=== PATIENT | female | born 1960 | race Caucasian/White ===

== ENCOUNTER 2022-12-31 15:47 | Outpatient (REF) | payer MEDICARE, MEDICAID, SELFPAY ==
[2022-12-31 18:23] LABS: Anion Gap 18 (12-20)
[2022-12-31 18:28] LABS: Alanine Aminotransferase 115 U/L (0-31); Albumin Level 4.4 g/dL (3.5-5.0); Alkaline Phosphatase 66 U/L (39-117); Aspartate Amino Transferase 121 U/L (5-31); Bilirubin Direct 0.2 mg/dL (0.0-0.5); Bilirubin Total 0.6 mg/dL (0.0-1.0); Blood Urea Nitrogen 20 mg/dL (9-16); Calcium 9.9 mg/dL (8.4-10.2); Carbon Dioxide 24 mmol/L (22-29); Chloride 98 mmol/L (96-108); Estimated Glomerular Filt Rate > 60; Glucose Random 96 mg/dL (60-115); Iron 90 mcg/dL (30-160); Magnesium 1.7 mg/dL (1.6-2.6); Percent Iron Saturation 28 % (15-50); Potassium 4.6 mmol/L (3.3-5.1); Sodium 135 mmol/L (135-145); Total Iron Binding Capacity 326 mcg/dL (228-428); Unsaturated Iron Binding 236 ug/dL
[2022-12-31 18:45] LABS: Ferritin 410 ng/mL (10-250); Gamma Glutamyl Transpeptidase 114 U/L (7-33)
[2022-12-31 18:54] LABS: Vitamin B12 589 pg/mL (200-900)
[2023-01-08 10:44] LABS: Anti Nuclear Antibody Screen NEGATIVE (NEGATIVE)
== END 2022-12-31 15:48 | disposition home or self-care (01) ==
LOC: HO.HHCL 15:47
PROVIDERS: Visit Provider Registered Nurse
DX: R74.8 Abnormal levels of other serum enzymes (principal); R53.83 Other fatigue; Z86.2 Personal history of diseases of the blood and blood-forming organs and certain disorders involving the immune mechanism
CPT/HCPCS: 36415; 80048; 80076; 82607; 82728; 82746; 82977; 83540; 83735; 86038

== ENCOUNTER 2025-04-14 13:42 | Outpatient (REF) | payer MEDICARE, MEDICAID, SELFPAY ==
--- OUTSIDE RECORDS SUMMARY | 2025-04-14 13:30 | XMS_ITS | Encounter Summary ---
Author Organization [employer] Address [address] [place] [address] [address] [place] [address] Care Team Providers Care Certified Master Locksmith Name Role Phone Vonnie Turcios MD Primary Care Provider + Encounter Details Date Type Department Care Team (Latest Contact Info) Description 04/14/2025 1:30 PM EDT Office Visit [facility] [address], [place] [phone] Laura Serrano MD [address] [place] [address] Uncomplicated opioid dependence (CMS/HCC) (HCC) (Primary Dx) Social History Tobacco Use Types Packs/Day Years Used Date Smoking Tobacco: Former Cigarettes Passive Smoke Exposure: Never Smokeless Tobacco: Never Tobacco Cessation:Counseling Given: Not Answered Alcohol Use Standard Drinks/Week Comments Yes 0 (1 standard drink = 0.6 oz pure alcohol) Currently drinking some days, wine and liquor Alcohol Answer Date Recorded How often do you have a drink containing alcohol ? 2 03/18/2023 How many drinks containing a lcohol do you have on a typical day when you are drinking? 1 03/18/2023 How often do you have six or more drinks on one occasion? 0 03/18/2023 Depression Answer Date Recorded Patient Health Questionnaire-9 Score 0 04/14/2025 Patient Health Questionnaire-9 Score 0 04/14/2025 Last PHQ-9: Questionnaire Data Not on file 1 Housing Stability Answer Date Recorded What is your housing situation today? I have kristian vicente 04/14/[address] you li ve. Do you have problems with any of the following? None of the above 04/14/2025 Food Insecurity Answer Date Recorded Within the past 12 months, y ou worried that your food would run out before you got money to buy more: Never True 04/14/2025 Within the past 12 months,th e food you bought just didn't last and you didn't have enough money to get more: Never True Transportation Answer Date Recorded In the past 12 months, has l ack of transportation kept you from medical appts, meetings, work or from getting things needed for daily living? No 04/14/2025 Utilities Answer Date Recorded In the past 12 months, has t he electric, gas, oil or water company threatened to shut off services in your home? Yes 04/14/2025 Depression Answer Date Recorded Patient Health Questionnaire-2 Score 0 04/14/2025 Internet Access Answer Date Recorded Internet Access Q1 I am not sure 04/14/2025 Internet Access Q2 Not on file 04/14/2025 Comments Unknown Sex and Gender Information Value Date Recorded Sex Assigned at Female 04/22/2022 10:21 AM EDT Legal Sex Female 10:21 AM EDT Gender Identity Female 04/22/2022 10:21 AM EDT Sexual Orientation Straight 04/22/2022 10 :21 AM EDT documented as of this encounter Last Filed Vital Signs Vital Sign Reading Time Taken Comments Blood Pressure 138/91 04/14/2025 1:31 PM EDT Pulse 100 04/14/2025 1:31 PM EDT Temperature 37.1 C (98.8 F) 04/14/2025 1:31 PM EDT Respiratory Rate - - Oxygen Saturation - - Inhaled Oxygen Concentration - - Weight - - Height - - Body Mass Index - - documented in this encounter Functional Status * Over the past 2 weeks, how often have you been bothered by any of the following problems? Question Answer Date of Assessment Author Patient Health Questionnaire -2 Score 0 04/14/2025 1:31 PM EDT Maik Best MA * Little interest or pleasure in doing things Answer Date of Assessment Author Not at all 04/14/2025 1:31 PM EDT Inna Best MA * Feeling down, depressed, or hopeless Answer Date of Assessment Author Not at all 04/14/2025 1:31 PM EDT Inna Best MA * Trouble falling or staying asleep, or sleeping too much Answer Date of Assessment Author Not at all 04/14/2025 1:31 PM EDT Inna Best MA * Feeling tired or having little energy Answer Date of Assessment Author Not at all 04/14/2025 1:31 PM EDT Inna Bets MA * Poor appetite or overeating Answer Date of Assessment Author Not at all 04/14/2025 1:31 PM EDT Inna Best MA * Feeling bad about yourself - or that you are a failure or have let yourself or your family down Answer Date of Assessment Author Not at all 04/14/2025 1:31 PM EDInna Sal MA * Trouble concentrating on things, such as reading the newspaper or watching television Answer Date of Assessment Author Not at all 04/14/2025 1:31 PM EDT Inna Best MA * Moving or speaking so slowly that other people could have noticed? Or the opposite - being so fidgety or restless that you have been moving around a lot more than usual. Answer Date of Assessment Author Not at all 04/14/2025 1:31 PM Inna Donaldson MA * Thoughts that you would be better off or hurting yourself in some way Answer Date of Assessment Author Not at all 04/14/2025 1:31 PM Inna Donaldson MA * Patient Health Questionnaire-9 Score Answer Date of Assessment Author 0 04/14/2025 1:31 PM EDT Inna Best MA documented as of this encounter Progress Notes * Laura Serrano MD - 04/14/2025 1:30 PM EDT Patient here for opioid dependence, has been in the OBAT program for 14 years 10 months. Intake date: 04/26/2010. Current Suboxone dose of 8/2 mg daily with appointments on an 8 week schedule. Behavioral health provider is: Olinda Kraus. LFTs last done 12/31/22. Last PCP appt 09/18/23. [place] PAT reviewed by provider. Last Visit 12/23/24 +bup only Jody is here for OBAT visit. Reports doing fine on current Suboxone dose. Planning to move to [place], hopefully in February. She has to sell her condo here first. Her son graduated from [employer] and transferred to [employer]. He will live with her ex partner once Jody moves. She is concerned about finding aSuboxone provider in [place], advised we could help her with that. Also offered Sublcoade as an alternative, she will consider. Not ready to make any major changes now, maybe in the furutre. Feels currentSuboxone dose helps with her depression and doesn't want to mess with it. TODAY-04/14/25 POS:BUP Subjective Patient ID: Jody Landaverde is a 64 y.o. female who presents for OBAT. Jody is being seen for OBAT services. She is maintaining abstinence on Suboxone with no cravings or med side effects. She is planning to put her condo on the market sometime soon and move to [place]. Doesn't know the timetable yet. Mood is good and she has mostly stopped drinking alcohol; now just has an occasional drink. She plans to start researching OBAT programs in [place]. Aware that she needs to do labwork. Review of Systems Psychiatric/Behavioral: Negative for dysphoric mood. The patient is not nervous/anxious. Objective Physical Exam Constitutional: Appearance: Normal appearance. Skin: General: Skin is warm and dry. Neurological: Mental Status: She is alert and oriented to person, place, and time. Assessment/Plan Diagnoses and all orders for this visit: Uncomplicated opioid dependence ([facility]) ([facility]) Counseling provided RE: importance of multiple sources of support for achieving and maintaining recovery. Counseling RE: harm reduction measures, ie, not using alone, the use of clean needles/equipment, Narcan. Discussed strategies to use when confronted with situations that trigger use. Continue current Suboxone dose. Continue eight week visits. - POCT CANDIS-14 Urine Drug Screen This information has been disclosed to you from records protected by federal confidentiality rules (42 CFR Part 2). The federal rules prohibit you from making any further disclosure of information inthis record that identifies a patient as having or having had a substance use disorder either directly, by reference to publicly available information, or through verification of such identification by another person unless further disclosure is expressly permitted by the written consent of the individual whose information is being disclosed or as otherwise permitted by (see2.3.1). The federal rules restrict any use of the information to investigate or prosecute with regard to a crime any patient with a substance use disorder, except as provided at 2.12??(5) and 2.65. documented in this encounter Plan of Treatment Upcoming Encounters Date Type Department Care Team (Late st Contact Info) Description 06/09/2025 1:30 PM EST Office Visit [facility] [address] [place] [address] Laura Serrano MD [address], [place] [phone] documented as of this encounter Procedures Procedure Name Priority Date/Time Associated Diagnosis Comments POCT CANDIS-14 URINE DRUG SCREEN Routine 04/14/2025 1:29 PM EDT Uncomplicated opioid dependence (CMS/HCC) (HCC) documented in this encounter Results * (ABNORMAL) POCT CANDIS-14 Urine Drug Screen (04/14/2025 1:29 PM EDT) THC Negative Negative Cocaine Screen, Urine Negative Negative Opiate Screen, Urine Negative Negative Methamphetamine Screen Urine Negative Negative Amphetamine Screen, Urine Negative Negative Benzodiazepines Screen, Urine Negative Negative Barbiturate Screen, Urine Negative Negative Methadone Screen, Urine Negative Negative Buprenophine Screen, Urine Positive(A) Negative TCA, Urine Negative Negative MDMA Urine Negative Negative ng/mL Oxycodone Screen, Urine Negative Negative Phencyclidine (PCP), Urine Negative Negative Fentanyl, Urine Negative Negative Urine Urine specimen obtained by clean catch procedure / Unknown 04/14/2025 1:29 PM EDT Laura Serrano MD POINT OF CARE TEST ENTER/MERLYN T ORDERABLES Final Result documented in this encounter Visit Diagnoses Diagnosis Uncomplicated opioid dependence (CMS/HCC) (HCC)- Primary documented in this encounter Additional Health Concerns Assessment Noted Time PHQ-9 Depression Total Score: 0 04/14/20 25 1:31 PM EDT documented as of this encounter Care Teams Certified Master Locksmith Relationship Specialty Start Date End Date Vonnie Turcios MD [address] [place] [address] PCP - General Family Medicine 08/02/20 documented as of this encounter
[2025-04-14 16:53] LABS: Alanine Aminotransferase 18 U/L (0-31); Albumin Level 4.5 g/dL (3.5-5.0); Alkaline Phosphatase 74 U/L (39-117); Aspartate Amino Transferase 31 U/L (5-31); Total Protein 8.3 g/dL (6.5-8.0)
--- OUTSIDE RECORDS SUMMARY | 2025-04-14 17:39 | XMS_ITS | Encounter Summary ---
Author Organization [employer] Address [address] [place] [address] [address] [place] [address] Care Team Providers Care Risk Intern Name Role Phone Vonnie Turcios MD Primary Care Provider + Reason for Visit * Reason Comments Med Refill Encounter Details Date Type Department Care Team ([facility] st Contact Info) Description 06/12/2023 Refill [facility] [address] [place], [place] [phone] Vonnie Turcios MD [address] [place] [address] Essential hypertension Social History Tobacco Use Types Packs/Day Years Used Date Smoking Tobacco: Former Cigarettes Passive Smoke Exposure: Never Smokeless Tobacco: Never Alcohol Use Standard Drinks/Week Comments Yes 0 [...] more drinks on one occasion? 0 03/18/2023 Housing Stability Answer Date Recorded What is your housing situation today? I have kristian vicente 04/08/[address] you li ve. Do you have problems with any of the following? None of the above 04/08/2023 Food Insecurity Answer Date Recorded Within the past 12 months, y ou worried that your food would run out before you got money to buy more: Never True 04/08/2023 Within the past 12 months,th e food you bought just didn't last and you didn't have enough money to get more: Never True Transportation Answer Date Recorded In the past 12 months, has l ack of transportation kept you from medical appts, meetings, work or from getting things needed for daily living? No 04/08/2023 Utilities Answer Date Recorded In the past 12 months, has t he electric, gas, oil or water company threatened to shut off services in your home? No 04/08/2023 Depression Answer Date Recorded Patient Health Questionnaire-2 Score 0 07/19/2022 Comments Unknown Sex and Gender Information Value Date Recorded Sex Assigned at Female 04/22/2022 10:21 AM EDT Legal Sex Female 10:21 AM EDT Gender Identity Female 04/22/2022 10:21 AM EDT Sexual Orientation Straight 04/22/2022 10 :21 AM EDT documented as of this encounter Plan of Treatment Upcoming Encounters Date Type Department Care Team (Late st Contact Info) Description 06/09/2025 1:30 PM EST Office Visit [facility] [address] [place] [address] Laura Serrano MD [address] [place] [address] documented as of this encounter Visit Diagnoses Diagnosis Essential hypertension Unspecified essential hypertension documented in this encounter Care Teams Risk Intern Relationship Specialty Start Date End Date Vonnie Turcios MD [address] [place] [address] PCP - General Family Medicine 08/02/20 documented as of this encounter
--- OUTSIDE RECORDS SUMMARY | 2025-04-14 17:39 | XMS_ITS | Encounter Summary ---
Author Organization [employer] Address [address] [place] [address] 7 [place] [address] Care Team Providers Care Cold Header Operator Name Role Phone Vonnie Turcios MD Primary Care Provider + Reason for Visit * Reason Comments Med Refill Encounter Details Date Type Department Care Team (Late Contact Info) Description 08/03/2022 Refill [facility] [address] [place] [address] Laura Serrano MD [address] [place] [address] Uncomplicated opioid dependence (CMS/HCC) Social History Tobacco Use Types Packs/Day Years Used Date Smoking Tobacco: Never Smokeless Tobacco: Never Alcohol Use Standard Drinks/Week Comments Yes 0 (1 standard drink = 0.6 oz pur e alcohol) Depression Answer Date Recorded Patient Health Questionnaire-2 Score 0 07/19/2022 Comments Unknown Sex and Gender Information Value Date Recorded Sex Assigned at Female 04/22/2022 10:21 AM EDT Legal Sex Female 10:21 AM EDT Gender Identity Female 04/22/2022 10:21 AM EDT Sexual Orientation Straight 04/22/2022 10 :21 AM EDT COVID-19 Exposure Response Date Recorded In the last 10 days, have yo u been in contact with someone who was confirmed or suspected to have Coronavirus/COVID-19? No / Unsure 08/01/2022 12:27 PM EST documented as of this encounter Plan of Treatment Upcoming Encounters Date Type Department Care Team (Late Contact Info) Description 06/09/2025 1:30 PM EST Office Visit [facility] [address] [place] [address] Laura Serrano MD [address] [place], [place] [phone] documented as of this encounter Visit Diagnoses Diagnosis Uncomplicated opioid dependence (CMS/HCC) (HCC) documented in this encounter Care Teams Cold Header Operator Relationship Specialty Start Date End Date Vonnie Turcios MD [address] [place] [address] PCP - General Family Medicine 08/02/20 documented as of this encounter
--- OUTSIDE RECORDS SUMMARY | 2025-04-14 17:39 | XMS_ITS | Encounter Summary ---
Author Organization [employer] Address [address] [facility] 7t [place] [address] Care Team Providers Care Big Data Analytics Lead Name Role Phone Vonnie Turcios MD Primary Care Provider + Encounter Details Date Type Department Care Team (Latest Contact Info) Description 04/14/2025 Travel Social History Tobacco Use Types Packs/Day Years [...] is your housing situation today? I have kristianmini vicente 04/14/[address] you [...] AM EDT documented as of this encounter Functional Status * Over the [...] 1:31 PM EDT Inna Best MA * Poor appetite or overeating Answer Date of Assessment Author Not at all 04/14/2025 1:31 PM EDT Inna Best MA * Feeling bad about yourself - or that you are a failure or have let yourself or your family down Answer Date of Assessment Author Not at all 04/14/2025 1:31 PM EDT Inna Best MA * Trouble concentrating on things, such [...] 1:31 PM EDT Inna Best MA * Thoughts that you would be better off or hurting yourself in some way Answer Date of Assessment Author Not at all 04/14/2025 1:31 PM EDT Inna Best MA * Patient Health Questionnaire-9 Score Answer Date of Assessment Author 0 04/14/2025 1:31 PM EDT Inna Best MA documented as of this encounter Plan of Treatment Upcoming Encounters Date Type Department Care Team (Late st Contact Info) Description 06/09/2025 1:30 PM EST Office Visit [facility] [address] [place] [address] Laura Serrano MD [address] [place] [address] documented as of this encounter Visit Diagnoses Not on filedocumented in this encounter Additional Health Concerns Assessment Noted Time PHQ-9 Depression Total Score: 0 04/14/20 25 1:31 PM EDT documented as of this encounter Care Teams Big Data Analytics Lead Relationship Specialty Start Date End Date Vonnie Turcios MD [address] [place] [address] PCP - General Family Medicine 08/02/20 documented as of this encounter
--- OUTSIDE RECORDS SUMMARY | 2025-04-14 17:39 | XMS_ITS | Clinical Summary ---
Author Organization [employer] Address [address] [place] [address] [address] [place] [address] Care Team Providers Care Tank Calibrator Name Role Phone Vonnie Turcios MD Primary Care Provider + Allergies No known active allergies Medications * This document contains information received from the source organization and may not represent a complete record from that organization. acyclovir (Zovirax) 5 % cream apply 1 small amount to affected area by Topical route 5 times every day prn outbreak Active barium sulfate (Readi-Cat 2) 2 % suspension take as directed Active EPINEPHrine (EpiPen 2-Edvin) 0.3 MG/0.3ML injection syringe inject 0.3 milliliter by intramuscular route once as needed for anaphylaxis Active fluticasone (Flonase) 50 MCG/ACT nasal spray spray 2 sprays by each nostril route every morning as needed Active glucose blood ([employer] Blood Glucose Test) test strip Check BS daily. Active zoster vaccine-recombi nant adjuvanted (Shingrix) 50 MCG/0.5ML vaccine inject 0.5 milliliter by intramuscular route once once repeat 0.5 mL dose 2 to 6 months after the first dose (total of 2 doses) Active hydrOXYzine HCl (Atarax) 25 MG tablet Take 25 mg by mouth if needed in the morning, at noon, and at bedtime. Active lisinopril 30 MG tabletIndicatio ns:Essential hypertension TAKE 1 TABLET BY MOUTH EVERY DAY 90 tablet 1 023 Active ibuprofen 400 MG tabletIndicatio ns:Chronic bilateral low back pain with bilateral sciatica TAKE 1 TABLET BY MOUTH EVERY 6 HOURS IF NEEDED FOR PAIN 90 tablet 1 024 Active triamcinolone (Kenalog) 0.1 % cream Apply topically if needed in the morning and at bedtime (pain and swelling). 30 g 2 024 Active buPROPion XL (Wellbutrin XL) 150 MG 24 hr tabletIndicatio ns:Bipolar I disorder (CMS/HCC) (HCC) TAKE 1 TABLET BY MOUTH EVERY DAY 90 tablet 025 Active hydroCHLOROthia zide 12.5 MG tabletIndicatio ns:Essential hypertension TAKE 1 TABLET BY MOUTH EVERY DAY IN THE MORNING 90 tablet 1 025 Active linaCLOtide (Linzess) 290 MCG capsuleIndicati ons:Irritable bowel syndrome with constipation TAKE 1 CAPSULE BY MOUTH EVERY DAY ON EMPTY STOMACH AT LEAST 30 MINUTES BEFORE 1ST MEAL OF THE DAY 90 capsule 025 Active Buprenorphine HCl-Naloxone HCl (Suboxone) 8-2 MG SL filmIndications :Uncomplicated opioid dependence (CMS/HCC) (HCC) Place 1 Film under the tongue Once per day. 28 Film 1 025 2024 Active Buprenorphine HCl-Naloxone HCl (Suboxone) 8-2 MG SL filmIndications :Uncomplicated opioid dependence (CMS/HCC) (HCC) Place 1 Film under the tongue Once per day. 28 Film 1 025 2024 Discontinued(R eorder (will not trigger notification to Pharmacy)) Buprenorphine HCl-Naloxone HCl (Suboxone) 8-2 MG SL filmIndications :Uncomplicated opioid dependence (CMS/HCC) (HCC) Place 1 Film under the tongue Once per day for 21 days. 21 Film 025 2024 Discontinued(R eorder (will not trigger notification to Pharmacy)) Active Problems Problem Noted Date Diagnosed Date Weight loss 09/18/2023 Assessment & Plan (09/18/2023 1:21 PM EDT): 50 lbs lost over the past 8 months Malignancy workup started, it could also be related to alcohol use Mammogram as scheduled for next wk Refer to GI for colonoscopy (last one done in 2009) Intrinsic eczema 09/18/2023 Assessment & Plan (09/18/2023 1:22 PM EDT): On toes Keep area hydrated and use triamcinolone cream BID Onycholysis 09/18/2023 Assessment & Plan (09/18/2023 1:20 PM EDT): Toenails, most likely due to long standing, untreated onychomycosis Refer to podiatry, pt may need to have some toenail excision Screening for colorectal cancer 09/18/2023 Primary osteoarthritis of left shoulder 09/18/19 Assessment & Plan (09/18/2023 1:33 PM EDT): Continue chiropractor + yoga Recommended to come to acupuncture clinic, info given today. Neck pain 09/11/2023 Alcohol withdrawal syndrome without complication (CMS/HCC) 01/10/2023 Assessment & Plan (01/12/2023 5:50 PM EDT): pt was probably in withdrawl at last appointment, counseled to avoid going back to drinking, vital signs are stable and symptoms seem to have subsisded we discussed at length of cutting down to off of alcohol she declined referral to AUD recommended her to reach out to wellness coach in suboxone program Chronic bilateral low back pain with bilateral s ciatica 01/10/2023 Assessment & Plan (01/10/2023 1:40 PM EDT): Seems to be muscluar. Recent x-ray wnl. recommended to restart stretching excerises, local heat to afected area, tylenol 500mg twice per day PRN. Reconsult PRN Elevation of levels of liver transaminase levels 01/10/2023 Alcoholic liver disease, unspecified 01/10/2023 Overview (09/18/2023): Abd US on 01/2023 ([facility]) showed fatty liver. Abnormal results of liver function studies 01/10 Hyponatremia 08/01/2022 Assessment & Plan (08/01/2022 1:29 PM EST): Most likely related to alcohol, liver disease, and lisinopril. Repeated labs are still pending. Counseled to cut down on alcohol use. Counseled to avoid excessive water intake. Elevated liver enzymes 08/01/2022 Assessment & Plan (09/18/2023 1:23 PM EDT): Related to alcohol use Counseled to cut down alcohol use and fu LFT's done last wk Assessment & Plan (01/10/2023 1:38 PM EDT): most likely related to alcohol counseled to quit alcohol repeat LFTS in 3 months liver US is pending FU with me in 4 weeks Assessment & Plan (08/01/2022 1:28 PM EST): Most likely related to patient's continues to drink alcohol albeit lower than last year's. Counseled to quit alcohol for at least 3 months, will repeat LFTs then with an abdominal US. Screening mammogram for breast cancer 07/19/2022 Tick bite of lower back 07/19/2022 Assessment & Plan (07/19/2022 1:33 PM EST): Use hydrocortisone cream on affected area and FU in 4-6 weeks. No signs of acute infection at this time. Right hip pain 07/19/2022 Assessment & Plan (07/19/2022 1:34 PM EST): Most likely OA. Use Tylenol PRN and apply heat to affected area. Counseled to come to acupuncture and start PT. Dermatitis 07/19/2022 Assessment & Plan (07/19/2022 1:34 PM EST): Secondary to a tick bite, use hydrocortisone as above. Dietary counseling 07/19/2022 Routine general medical exam ination at a health care facility 07/19/2022 Assessment & Plan (07/19/2022 2:49 PM EST): Discussed with patient re increase fresh fruit and vegetable intake. Counseled re moderate exercise as tolerated, up to 20min/d Patient feels safe at home. PAP smear: To be scheduled Mammogram: Ordered today Bone density test: Ordered today Eye exam: referred to eye clinic CRC screen: Referred to GI Lipids/FBS: Ordered today Vaccinations: She will get Zoster (at the pharmacy), Influenza and Covid booster today Dental visit: She needs to fu for a crown repair Postmenopause 07/19/2022 Age-related osteoporosis wit hout current pathological fracture 07/19/2022 Hyperglycemia 05/30/2022 Hypercholesterolemia 04/16/2018 Prediabetes 04/16/2018 Assessment & Plan (09/18/2023 1:20 PM EDT): Controlled. A1c is at goal. Counseled re more frequent low calorie/carb meals. Encouraged physical activity as tolerated. FU in 6 months. Assessment & Plan (08/01/2022 1:30 PM EST): Resolved. A1C wnl. Check RBS yearly. Assessment & Plan (07/19/2022 1:32 PM EST): A1C is at goal. No prediabetes at this time. Counseled re more frequent low calorie/carb meals. Encouraged physical activity as tolerated. FU with labs in 6 months. Cough 08/25/2017 Bipolar I disorder ([facility]) 04/10/2015 Assessment & Plan (09/18/2023 1:31 PM EDT): Currently on Wellbutrin + Suboxone for opiate dependence, she's compliant and feels well). Needs to reestablish psychotherapy, I will have our team contact her to give her info and a short term POC. Counseled to quit ETOH, I told her she can address it with suboxone provider/counselors so that she can be referred to AUD program, not ready at this time. She feels safe at home, she's able to reach out for safety. Assessment & Plan (03/18/2023 11:43 AM EDT): Assessment: Patient with history of Bipolar (diagnosis documented in the medical record, history of 3 breakdowns with paranoia) and increased recent stressors. Jody endorsed 1 year of decreased interest in activities and increased involvement in preferred activities over the past month. he endorsed difficulty with this transition and that she has noticed a slight increase in jennifer symptoms . She reported that the max sleep she gets is 5 hours a night. Symptoms are in the context of biopsychosocial stressors of lack of OP services and a history of trauma. Symptoms are in the context of biopsychosocial stressors of lack of OP services and a history of trauma. Patient will benefit from self referral to [facility] for OP therapy. . At this time Jody Landaverde meets criteria for Visit Diagnoses: Problem List Items Addressed This Visit Other Bipolar I disorder ([facility]) Patient ready to address current needs Yes Strengths- Jody uses a variety of coping mechanisms and has a strong craft with her children. She is in the action stage of change. PLAN: 1. Follow up with [facility]: Not recommended for follow-up 2. Patient goal is to engage in OP therapy 3. Behavioral Recommendations a. Walking b. Yoga c. Deep breathing Assessment & Plan (01/31/2023 11:55 AM EDT): Assessment Patient with history of Bipolar (diagnosis documented in the medical record, history of 3 breakdowns with paranoia) and increased recent stressors. Jody endorsed 1 year of decreased interest in activities and increased involvement in preferred activities over the past month.Symptoms are in the context of biopsychosocial stressors of lack of OP services and a history of trauma. Patient will benefit from OP therapy. At this time Jody Landaverde meets criteria for Visit Diagnoses: Problem List Items Addressed This Visit Other Bipolar I disorder ([facility]) Patient ready to address current needs Yes Strengths- Jody endorses improving symptoms and is in the action stage of change. PLAN: 1. Follow up with [facility]: Not recommended for follow-up 2. Patient goal is to engage in OP therapy and increase coping mechanisms 3. Behavioral Recommendations a. OP therapy b. Medication management with PCP Assessment & Plan (01/12/2023 5:18 PM EDT): She has been out of mental health care for many years, using only wellbutrin, no change in medications at this time, refer to for med management Cousneled to avoid alcohol and recreational substances refer to behavioral health counseled her to reach out to her wellness coach from the suboxone program I gave her the crisis number FU in 3-4 weeks. Concerned about hypomania episode Assessment & Plan (07/19/2022 1:29 PM EST): Had a recent admission 6 months ago to [facility]. Seems to be doing better on Wellbutrin 150 mg, no recent anxiety attacks. Pt is able to reach out for safety and has crisis humber She will call and schedule appointment with Dr. Jamie MAYO with me in 6-8 weeks Irritable bowel syndrome with constipation 04/10 Assessment & Plan (09/18/2023 1:19 PM EDT): Discussed about dietary modification, use Linzess daily Assessment & Plan (07/19/2022 1:30 PM EST): Continue Linzess. Increase fiber and water intake. Keep food/symptoms diary. Episodic tension-type headache 04/10/2015 Essential hypertension 04/10/2015 Assessment & Plan (09/18/2023 1:18 PM EDT): Slightly uncontrolled, counseled to cut down on alcohol use Continue lisinopril 30 mg Counseled re low salt diet/increase moderate physical activity. Check home BP BIW and prn CP/HERNADEZ/MOTT Non smoking patient. Fu labs done last wk Fu 3 months Assessment & Plan (08/01/2022 1:27 PM EST): Controlled. Compliant w/meds Continue hydrochlorothiazide 25 + lisinopril 20 Counseled re low salt diet/increase moderate physical activity. Check home BP BIW and prn CP/HERNADEZ/MOTT Non smoking patient. Assessment & Plan (07/19/2022 1:30 PM EST): BP is at goal. Controlled. Compliant w/meds Continue lisinopril + hctz same dose Counseled re low salt diet/increase moderate physical activity. Check home BP BIW and prn CP/HERNADEZ/MOTT Non smoking patient. Opioid dependence 04/10/2015 Assessment & Plan (07/19/2022 1:31 PM EST): Doing well on Suboxone. I sent a prescription for Naloxone. 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 04/10/2015 Encounters Date Type Department Care Team Description 04/14/2025 1:30 PM EDT Office Visit [facility] [address] [place] [address] Laura Serrano MD Uncomplicated opioid dependence ([facility]) ([facility]) (Primary Dx) 04/14/2025 Travel 04/06/2025 Refill [facility] [address] [place] [address] Laura Serrano MD Uncomplicated opioid dependence ([facility]) ([facility]) 03/24/2025 Refill [facility] [address] [place] [address] Laura Serrano MD Uncomplicated opioid dependence ([facility]) ([facility]) 02/23/2025 Refill [facility] [address] [place] [address] Vonnie Turcios MD Irritable bowel syndrome with constipation 02/10/2025 Refill [facility] [address] [place] [address] Erich Delgado RN Uncomplicated opioid dependence ([facility]) 02/03/2025 Orders Only [facility] [address] [place] [address] Laura Serrano MD Uncomplicated opioid dependence ([facility]) (Primary Dx) from Last 3 Months Immunizations Immunization Administration Dates Next Due Hep A, ped/adol, 2 dose 08/01/2011,10/04/2010 Influenza injectable quadriv alent IIV4 with preservative 04/23/2018,03/10/2017,03/28/2016 Influenza injectable quadriv alent preservative free 07/19/2022,04/19/2021,08/24/2019 Moderna Covid-19 Vaccine 6+ Bivalent 07/19/2022 Tdap 04/19/2010 Social History Tobacco Use Types Packs/Day Years [...] Orientation Straight 04/22/2022 10 :21 AM EDT Last Filed Vital Signs Vital Sign Reading Time Taken Comments Blood Pressure 138/91 04/14/2025 1:31 PM EDT Pulse 100 04/14/2025 1:31 PM EDT Temperature 37.1 C (98.8 F) 04/14/2025 1:31 PM EDT Respiratory Rate 16 12/31/2022 2:45 PM EDT Oxygen Saturation 100% 09/18/2023 12:35 PM EDT Inhaled Oxygen Concentration - - Weight 51.5 kg (113 lb 8 oz) 09/18/2023 12:35 PM EDT Height 152.4 cm (5') 09/18/2023 12:35 PM EDT Body Mass Index 22.17 09/18/2023 12:35 PM EDT Plan of Treatment Upcoming Encounters Date Type Department Care Team (Late st Contact Info) Description 06/09/2025 1:30 PM EST Office Visit [facility] [address], [place] [phone] Laura Serrano MD [address] [place], [place] [phone] Health Maintenance Due Date Last Done Comments CT Colonography 1960 Colonoscopy 1960 Colorectal Cancer Screening 1960 FIT DNA/Cologuard 1960 FIT 1960 FOBT 1960 Lipid Panel 1960 Sigmoidoscopy 1960 Hepatitis A Vaccines (1 of 2 - Risk 2-dose series) 10/15/1979 08/01/2011, 10/04/2010 Pap Smear 1981 Pneumococcal Vaccine: 50+ Years (1 of 1 - PCV) 2010 Zoster Vaccines (1 of 2) 2010 DTaP/Tdap/Td Vaccines (2 - Td or Tdap) 04/19/2020 04/19/2010 Hepatitis B Vaccines (1 of 3 - Risk 3-dose series) 2020 RSV Patients and Patients Aged 60 years or older (1 - Risk 60-74 years 1-dose series) 2020 Cervical Cancer Screening 12/17/2021 HPV/Cotest 12/17/2021 12/17/2016 Diabetes: Hemoglobin A1C 09/17/2024 024, 07/19/2022, 07/19/2022 COVID-19 Vaccine ( season) 2025 07/19/2022, 06/06/2021, 11/07/2020, Additional history exists Influenza Vaccine (#1) 2025 3, 04/19/2021, 08/24/2019, Additional history exists Tobacco Screening 05/27/2025 05/27/2024 Mammogram 10/08/2025 10/09/2023, 10/09/2023 Alcohol/Substance Use Screening 04/14/2026 04/14/2025 Depression Screening 04/14/2026 04/14/2025, 04/14/20 25 Disability Screening 04/14/2026 04/14/2025 SDOH Screening 04/14/2026 04/14/2025 HIV Screening Completed 07/19/2022 Hepatitis C Screening Completed 07/19/2022 HIB Vaccines Aged Out No longer eligi ble based on patient's age to complete this topic HPV Vaccines Aged Out No longer eligi ble based on patient's age to complete this topic IPV Vaccines Aged Out No longer eligi ble based on patient's age to complete this topic Meningococcal B Vaccine Aged Out No l onger eligible based on patient's age to complete this topic Meningococcal Vaccine Aged Out No cristiano terrence eligible based on patient's age to complete this topic RSV under 20 months Aged Out No longe r eligible based on patient's age to complete this topic Rotavirus Vaccines Aged Out No longer eligible based on patient's age to complete this topic Procedures Procedure Name Priority Date/Time Associated Diagnosis Comments HEPATIC FUNCTION PANEL Routine 04/14/2025 1:48 PM EDT Uncomplicated opioid dependence (CMS/HCC) (HCC) POCT CANDIS-14 URINE DRUG SCREEN Routine 04/14/2025 1:29 PM EDT Uncomplicated opioid dependence (CMS/HCC) (HCC) HM MAMMOGRAPHY Routine 10/09/2023 POCT GLYCATED HEMOGLOBIN, TOTAL Routine 09/18/2023 12:40 PM EDT Prediabetes HEPATITIS PANEL, GENERAL Routine 07/19/2022 10:50 AM EST Visit for preventive health examination HIV 1/2 ANTIGEN/ANTIBODY, FOURTH GENERATION W/RFL Routine 07/19/2022 10:50 AM EST Visit for preventive health examination [facility]ZZ HISTORICAL HPV MRNA E6/E7 Routine 12/17/2016 11:27 AM EDT from Last 3 Months or Most Recently Relevant to Health Maintenance Results * (ABNORMAL) Hepatic Function Panel (04/14/2025 1:48 PM EDT) Bilirubin, Total 0.6 0.0 - 1.0 mg/dL [facility] Bilirubin, Direct 0.2 0.0 - 0.5 mg/dL [facility] Aspartate Amino Transferase 31 5 - 31 U/L [facility] Alanine Aminotransferase 18 0 - 31 U/L [facility] Total Protein 8.3(H) 6.5 - 8.0 g/dL [facility] Albumin Level 4.5 3.5 - 5.0 g/dL [facility] Alkaline Phosphatase 74 39 - 117 U/L [facility] Blood Venous blood specimen / Unknown 04/14/2025 1:48 PM EDT 04/14/2025 4:00 PM EDT Laura Serrano MD LAB BLOOD ORDERABLES Final R esult [facility] [address] [place] [phone] * (ABNORMAL) POCT CANDIS-14 Urine Drug Screen [...] CARE TEST ENTER/MERLYN T ORDERABLES Final Result * Mammography (10/09/2023) [facility] Mammogram BIRADS 1 Normal, Abnormal, BIRADS 1 , BIRADS 2 Anatomical Region Laterality Modality Other Historical Provider HEALTH MAINTENANCE Final Result * POCT HGB A1C (09/18/2023 12:40 PM EDT) [facility] Hemoglobin A1C 5.3 4.0 - 6.0 % QC Media Lot # [id number] Lot# Expiration Date Blood 09/18/2023 12:4 0 PM EDT Vonnie Turcios MD POINT OF CARE TEST ENTER /EDIT ORDERABLES Final Result * (ABNORMAL) Hepatitis Panel, General (07/19/2022 10:50 AM EST) [facility] Hepatitis A Antibody Total REACTIVE( A) NON-REACT [facility] [place] [employer] Comment: For additional information, please refer to http://education.Desk/faq/FWB239 (This link is being provided for informational/ educational purposes only.) Hepatitis B Surface Antibody QL REACTIVE( A) NON-REACT [facility] [place] [employer] Hepatitis B Surface Ag NON-REACT BASHIR NON-REACT [facility] [place] [employer] Hepatitis B Core Antibody Total NON-REACT BASHIR NON-REACT [facility] [place] [employer] Hepatitis C Antibody NON-REACT BASHIR NON-REACT ABSHIR [facility] [place] [employer] Index <0.02 <1.00 [facility] [place] [employer] Comment: HCV antibody was non-reactive. There is no laboratory evidence of HCV infection. In most cases, no further action is required. However, if recent HCV exposure is suspected, a test for HCV RNA (test code 49413) is suggested. For additional information please refer to http://[employer].Desk/faq/EMK16v8 (This link is being provided for informational/ educational purposes only.) 07/19/2022 10:5 0 AM EST 07/19/2022 10:50 AM EST Narrative [facility] - 07/20/2022 12:45 PM EST FASTING:YES FASTING: YES us Vonnie Turcios MD LAB BLOOD ORDERABLES Fin al Result [facility] [address] [place] [address], [facility], [place] [address] [facility] [place] [employer] [address] [facility], ([address]) [place] [address] * HIV-1/2 Antigen and Antibodies, Fourth Generation, with Reflexes (07/19/2022 10:50 AM EST) [facility] HIV Antigen/Antibody, 4th Generation NON-REAC TIVE NON-REAC TIVE [facility] [place] [facility] Comment: HIV-1 antigen and HIV-1/HIV-2 antibodies were not detected. There is no laboratory evidence of HIV infection. PLEASE NOTE: This information has been disclosed to you from records whose confidentiality may be protected by state law. If your state requires such protection, then the state law prohibits you from making any further disclosure of the information without the specific written consent of the person to whom it pertains, or as otherwise permitted by law. A general authorization for the release of medical or other information is NOT sufficient for this purpose. For additional information please refer to http://[employer].Molcure.SimplyInsured/faq/SIR120 (This link is being provided for informational/ educational purposes only.) The performance of this assay has not been clinically validated in patients less than 2 years old. Blood Venous blood specimen / Unknown 07/19/2022 10:50 AM EST 07/19/2022 10:50 AM EST Narrative [facility] - 07/20/2022 12:45 PM EST FASTING:YES FASTING: YES us Vonnie Turcios MD LAB BLOOD ORDERABLES Fin al Result [facility] [address] [facility], [facility], [place] [address] [facility] [address] [facility], ([address]) [place] [address] * HPV mRNA E6/E7 (12/17/2016 11:27 AM EDT) HPV mRNA E6/E7 Not Detected NOT DETECTED [facility] Comment: This test was performed using the APTIMA(R) HPV Assay ([employer] This assay detects E6/E7 viral messenger RNA (mRNA) from 14 high-risk HPV types (16,18,31,33,35,39,45,51, 52,56,58,59,66,68). For additional information please refer to: http://education.Desk/faq/NQZ004u4 (This link is being provided for informational/ educational purposes only.) Test Performed by [facility], [facility], [address] [place] [id number] Jonnie Cheung M.D., Ph.D., Director of Laboratories , [facility] [id number] Please note: Effective 03/04/2016, HPV testing will be performed using [employer]'s APTIMA test which targets mRNA. Detecting mRNA instead of DNA, as in older methods, offers significant improvements in specificity. 12/17/2016 11:2 7 AM EDT us Ruby Ornelas NP HISTORICAL/NON ORDERABLE LABS Fi nal Result [facility] [address] from Last 3 Months or Most Recently Relevant to Health Maintenance Insurance [facility] Care Teams Tank Calibrator Relationship Specialty Start Date End Date Vonnie Turcios MD [address] [place] [phone] PCP - General Family Medicine 08/02/20
--- OUTSIDE RECORDS SUMMARY | 2025-04-14 17:40 | XMS_ITS | Encounter Summary ---
Author Organization [employer] Address [address] [place] [address] [place] [address] Care Team Providers Care Sales Office Assistant Name Role Phone Vonnie Turcios MD Primary Care Provider + Reason for Visit * Reason Comments Med Refill Encounter Details Date Type Department Care Team (Late Contact Info) Description 10/07/2022 Refill [facility] MEDICINE [address] [place] [address] [phone] Laura Serrano MD [address] [place] [address] [phone] Uncomplicated opioid dependence (CMS/HCC) Social History Tobacco [...] Description 06/09/2025 1:30 PM EST Office Visit [facility] MEDICINE [address] [place] [address] [phone] Laura Serrano MD [address] [place] [address] [phone] documented as of this encounter Visit Diagnoses Diagnosis Uncomplicated opioid dependence (CMS/HCC) (HCC) documented in this encounter Care Teams Sales Office Assistant Relationship Specialty Start Date End Date Vonnie Turcios MD [address] [place] [phone] PCP - General Family Medicine 08/02/20 documented as of this encounter
--- OUTSIDE RECORDS SUMMARY | 2025-04-14 17:40 | XMS_ITS | Encounter Summary ---
Author Organization [employer] Address [address] [place] [address] 7 [place] [address] Care Team Providers Care Flight Crew Ordnanceman Name Role Phone Vonnie Turcios MD Primary Care Provider + Reason for Visit * Reason Comments Med Refill Encounter Details Date Type Department Care Team ([facility] st Contact Info) Description 03/06/2024 Refill [facility] MEDICINE [address] [place], [place] [phone] Vonnie Turcios MD [address] [place] [address] Essential hypertension Social History Tobacco Use Types [...] Description 06/09/2025 1:30 PM EST Office Visit [facility] MEDICINE [address] [place] [phone] Laura Serrano MD [address] [place] [phone] documented as of this encounter Visit Diagnoses Diagnosis Essential hypertension Unspecified essential hypertension documented in this encounter Care Teams Flight Crew Ordnanceman Relationship Specialty Start Date End Date Vonnie Turcios MD [address] [place] [phone] PCP - General Family Medicine 08/02/20 documented as of this encounter
--- OUTSIDE RECORDS SUMMARY | 2025-04-14 17:40 | XMS_ITS | Encounter Summary ---
Author Organization [employer] Address [address] [place] [address] [address] [place] [address] Care Team Providers Care Flame Cutting Supervisor Name Role Phone Vonnie Turcios MD Primary Care Provider + Encounter Details Date Type Department Care Team ([facility] st Contact Info) Description 07/22/2022 Orders Only [facility] MEDICINE [address] [place], [place] [phone] Vonnie Turcios MD [address] [place] [address] Hyponatremia (Primary Dx); Vitamin D deficiency; Elevated liver enzymes; Essential hypertension Social History Tobacco Use Types [...] suspected to have Coronavirus/COVID-19? No / Unsure 07/19/2022 9:51 AM EST documented as of this encounter Miscellaneous Notes * Result Encounter Note - Vonnie Turcios MD - 07/22/2022 10:43 PM EST Labs on 12/31/22 showed higher LFTs than previous , probably from liver inflammation? ETOH? Fatty liver? Recent Hepatitis panel (06/2022)was negative. Please call patient and tell her that I will ordera liver US to visualize her liver and fu the rest of results at upcoming appt. Remind her to avoid ETOH intake, continue suboxone, remain hydrated, continue POC as per 12/31/22 appt. If sxs got any worse form yesterday or her BP continues >150/100, she needs to go to ED. documented in this encounter Plan of Treatment Upcoming Encounters Date Type Department Care Team (Late st Contact Info) Description 06/09/2025 1:30 PM EST Office Visit [facility] MEDICINE [address] [place] [address] Laura Serrano MD [address] [place], [place] [phone] Scheduled Orders Name Type Priority Associated Diagnoses Orde r Schedule Basic Metabolic Panel Lab Routine Hyponatremia Expected: 07/22/2022 (Approximate), Expires: 07/22/2023 Sodium Without creatinine, Random Urine Lab Routine Hyponatremia Expected: 07/22/2022 (Approximate), Expires: 07/22/2023 Hepatic Function Panel Lab Routine Elevated liver enzymes Expected: 07/22/2022 (Approximate), Expires: 07/22/2023 Gamma Glutamyl Transferase (GGT) Lab Routine Elevated liver enzymes Expected: 07/22/2022 (Approximate), Expires: 07/22/2023 VONNIE SCR, IFA W/Refl Titer and Pattern Lab Routine Elevated liver enzymes Expected: 07/22/2022 (Approximate), Expires: 07/22/2023 Basic Metabolic Panel Lab Routine Hyponatremia Expected: 08/16/2022 (Approximate), Expires: 08/02/2023 documented as of this encounter Procedures Procedure Name Priority Date/Time Associated Diagnosis Comments VITAMIN B12/FOLATE, SERUM PANEL Routine 12/31/2022 4:00 PM EDT Hyponatremia IRON AND TOTAL IRON BINDING CAPACITY Routine 12/31/2022 4:00 PM EDT Hyponatremia MAGNESIUM Routine 12/31/2022 4:00 PM EDT Hyponatremia GGT Routine 12/31/2022 4:00 PM EDT Hyponatremia FERRITIN Routine 12/31/2022 4:00 PM EDT Hyponatremia HEPATIC FUNCTION PANEL Routine 12/31/2022 4:00 PM EDT Hyponatremia BASIC METABOLIC PANEL Routine 12/31/2022 4:00 PM EDT Hyponatremia documented in this encounter Results * Vitamin B12/Folate, Serum Panel (12/31/2022 4:00 PM EDT) Vitamin B12 589 200 - 900 pg/mL [facility] Comment:NORMAL 200-900 PG/ML INDETERMINATE 160-199 PG/ML DEFICIENT < 160 PG/ML Folate 9.0 > or = 4.0 ng/mL [facility] Comment:Reference Values:> o r = 4.0 ng/mL< 4.0 ng/mL suggests folate deficiency Methotrexate, aminopterin and folinic acid(leucovorin) are chemotherapeutic agents whose molecularstructures are similar to folate; therefore, the Architectfolate assay cannot be used for patients using these drugs. 12/31/2022 4:00 PM EDT 12/31/2022 5:40 PM EDT [facility] External Provider LAB BLO OD ORDERABLES Final Result [facility] [address] [place] [phone] [phone] * (ABNORMAL) Gamma Glutamyl Transferase (GGT) (12/31/2022 4:00 PM EDT) Gamma Glutamyl Transpeptidase 114(H) 7 - 33 U/L [facility] 12/31/2022 4:00 PM EDT 12/31/2022 5:40 PM EDT [facility] External Provider LAB BLO OD ORDERABLES Final Result Performing Organization Address [facility] Co de Phone Number [facility] [address] [place] [phone] * (ABNORMAL) Ferritin (12/31/2022 4:00 PM EDT) Ferritin 410(H) 10 - 250 ng/mL [facility] 12/31/2022 4:00 PM EDT 12/31/2022 5:40 PM EDT [facility] External Provider LAB BLO OD ORDERABLES Final Result Performing Organization Address [facility] de Phone Number [facility] [address] [place] [phone] * Iron And Total Iron Binding Capacity (12/31/2022 4:00 PM EDT) Iron 90 30 - 160 mcg/dL [facility] Comment:Slight Hemolysis Total Iron Binding Capacity 326 228 - 428 mcg/dL [facility] Percent Iron Saturation 28 15 - 50 % [facility] Unsaturated Iron Binding 236 ug/dL [facility] 12/31/2022 4:00 PM EDT 12/31/2022 5:40 PM EDT [facility] External Provider LAB BLO OD ORDERABLES Final Result Performing Organization Address [facility] Co de Phone Number [facility] [address] [place] [phone] * Magnesium (12/31/2022 4:00 PM EDT) Magnesium 1.7 1.6 - 2.6 mg/dL [facility] 12/31/2022 4:00 PM EDT 12/31/2022 5:40 PM EDT [facility] External Provider LAB BLO OD ORDERABLES Final Result Performing Organization Address [facility] de Phone Number [facility] [address] [place] [phone] * (ABNORMAL) Hepatic Function Panel (12/31/2022 4:00 PM EDT) Bilirubin, Total 0.6 0.0 - 1.0 mg/dL [facility] Bilirubin, Direct 0.2 0.0 - 0.5 mg/dL [facility] Comment:Slight Hemolysis Aspartate Amino Transferase 121(H) 5 - 31 U/L [facility] Comment:Slight Hemolysis Alanine Aminotransferase 115(H) 0 - 31 U/L [facility] Total Protein 9.0(H) 6.5 - 8.0 g/dL [facility] Albumin Level 4.4 3.5 - 5.0 g/dL [facility] Alkaline Phosphatase 66 39 - 117 U/L [facility] 12/31/2022 4:00 PM EDT 12/31/2022 5:40 PM EDT [facility] External Provider LAB BLO OD ORDERABLES Final Result Performing Organization Address [facility] de Phone Number [facility] [address] [place] [phone] * (ABNORMAL) Basic Metabolic Panel (12/31/2022 4:00 PM EDT) Sodium 135 135 - 145 mmol/L [facility] Potassium 4.6 3.3 - 5.1 mmol/L [facility] Comment:Slight Hemolysis Chloride 98 96 - 108 mmol/L [facility] Carbon Dioxide 24 22 - 29 mmol/L [facility] Anion Gap 18 12 - 20 [facility] Urea Nitrogen (BUN) 20(H) 9 - 16 mg/dL [facility] Creatinine, Serum 0.90 0.5 - 1.4 mg/dL [facility] Estimated Glomerular Filt Rate >60 [facility] Comment:NOTE: For -Am erican individuals, multiply the result by 1.210.Chronic Kidney Disease: Estimated GFR < 60 mL/min/[id number] Kidney Disease: Estimated GFR < 15 mL/min/1.73m2 Glucose 96 60 - 115 mg/dL [facility] Calcium 9.9 8.4 - 10.2 mg/dL [facility] 12/31/2022 4:00 PM EDT 12/31/2022 5:40 PM EDT [facility] External Provider LAB BLO OD ORDERABLES Final Result [facility] [address] [place] [phone] documented in this encounter Visit Diagnoses Diagnosis Hyponatremia- Primary Hyposmolality and/or hyponatremia Vitamin D deficiency Elevated liver enzymes Other nonspecific abnormal serum enzyme levels Essential hypertension Unspecified essential hypertension documented in this encounter Care Teams Flame Cutting Supervisor Relationship Specialty Start Date End Date Vonnie Turcios MD [address] [place] [address] PCP - General Family Medicine 08/02/20 documented as of this encounter
--- OUTSIDE RECORDS SUMMARY | 2025-04-14 17:40 | XMS_ITS | Encounter Summary ---
Author Organization [employer] Address [address] [place] [address] 7 [place] [address] Care Team Providers Care Entry Level Electrical Engineer Name Role Phone Vonnie Turcios MD Primary Care Provider + Reason for Visit * Reason Comments Med Refill Encounter Details Date Type Department Care Team ([facility] st Contact Info) Description 03/14/2023 Refill [facility] MEDICINE [address] [place], [place] [phone] Vonnie Turcios MD [address] [place] [address] Bipolar I disorder ([facility]) Social History Tobacco Use Types Packs/Day Years [...] 03/18/2023 Depression Answer Date Recorded Patient Health Questionnaire-2 [...] Description 06/09/2025 1:30 PM EST Office Visit [facility] MEDICINE [address] [place] [phone] Laura Serrano MD [address] [place] [address] documented as of this encounter Visit Diagnoses Diagnosis Bipolar I disorder (CMS/HCC) (HCC) Bipolar I disorder, most recent episode (or current) unspecified documented in this encounter Care Teams Entry Level Electrical Engineer Relationship Specialty Start Date End Date Vonnie Turcios MD [address] [place] [phone] PCP - General Family Medicine 08/02/20 documented as of this encounter
[2025-04-15 04:24] LABS: HBc Num1 0.08 S/CO (0.00-0.79)
[2025-04-15 04:33] LABS: HBS Num1 156.39 mIU/mL (0-7.99); HBsAGNum1 0.36 S/CO (0.00-0.99); Hepatitis B Surface Antigen Negative (Negative); ~HepC Num1 0.07 S/CO (0.00-0.79); ~Hepatitis B Surface Antibody REACTIVE (Nonreactive); ~Hepatitis C Antibody Nonreactive (Nonreactive)
== END 2025-04-14 13:43 | disposition home or self-care (01) ==
LOC: HO.HHCL 13:42
PROVIDERS: PCP Internal Medicine; Visit Provider Family Medicine
DX: F11.20 Opioid dependence, uncomplicated (principal)
CPT/HCPCS: 36415; 80076; 86704; 86706; 86803; 87340